=== PATIENT | female | born 1940 | race Two or more races ===

== ENCOUNTER 2024-01-05 08:43 | Emergency (ER) | payer OTHER ==
[~2024-01-05] VITALS: Ht 162.6 cm; Wt 73.5 kg
[~2024-01-05 08:43] MED LIST: CRESTOR20 MG; FOLIC ACID1 MG; GLYXAMBI 25 MG1 EACH; JANUVIA100 MG; LOSARTAN POTASS50 MG; OMEPRAZOLE MAGN20 MG; SINGULAIR10 MG; SYNTHROID125 MCG; ZANAFLEX2 MG PO
[2024-01-05 12:53] LABS: HEMATOCRIT 38.3 % (36.0-45.00); HEMOGLOBIN 12.1 g/dL (12.0-15.00); MEAN CORPUSCULAR HEMOGLOBIN 24.3 pg (27.00-32.0); MEAN CORPUSCULAR HGB CONC 31.5 g/dl (32.0-36.0); PLATELET COUNT 191 K/uL (150-450); RED BLOOD COUNT 4.97 M/uL (4.00-6.00); RED CELL DISTRIBUTION WIDTH 14.4 % (11.5-14.5)
[2024-01-05 12:57] LABS: CALCIUM 9.5 mg/dL (8.5-10.1); CREATININE SERUM 0.52 mg/dL (0.55-1.02); GFR 112.34; POTASSIUM 3.96 mEq/L (3.5-5.1)
[2024-01-05] MEDS ORDERED: ACETAMINOPHEN 500 MG GEL..CAP PO ONE ×2 (15:51→16:00)
[2024-01-05] MEDS ORDERED: CEFTRIAXONE SODIUM 1,000 MG VIAL IM ONE (16:45)
[2024-01-05] MEDS ORDERED: CEFTRIAXONE SODIUM 1,000 MG VIAL ONE (16:53)
[2024-01-05] MEDS ORDERED: LIDOCAINE HCL 1% 10ML VIAL ONE (16:54)
== END 2024-01-05 17:01 ==
LOC: ER 08:44
PROVIDERS: General Practice
DX: M79.605 Pain in left leg (principal); I10 Essential (primary) hypertension; E03.8 Other specified hypothyroidism; E11.9 Type 2 diabetes mellitus without complications; Z88.0 Allergy status to penicillin; Z91.013 Allergy to seafood

== ENCOUNTER 2024-01-22 18:05 | Emergency (ER) | payer OTHER ==
[~2024-01-22] VITALS: Ht 162.6 cm; Wt 73.5 kg
[2024-01-22] MEDS ORDERED: FAMOTIDINE/PF 20 MG/2 ML VIAL IV PUSH STA (20:59)
[2024-01-22] MEDS ORDERED: ONDANSETRON HCL 2 MG/ML VIAL IM STA (21:00)
[2024-01-22 21:44] LABS: HEMATOCRIT 36.8 % (36.0-45.00); HEMOGLOBIN 11.5 g/dL (12.0-15.00); MEAN CELL VOLUME 76.8 fL (80.00-100.00); MEAN CORPUSCULAR HEMOGLOBIN 23.9 pg (27.00-32.0); MEAN CORPUSCULAR HGB CONC 31.1 g/dl (32.0-36.0); PLATELET COUNT 208 K/uL (150-450); RED BLOOD COUNT 4.79 M/uL (4.00-6.00); RED CELL DISTRIBUTION WIDTH 14.5 % (11.5-14.5)
[2024-01-22 22:33] LABS: ALBUMIN 3.5 gm/dL (3.4-5.0); BILIRUBIN TOTAL 0.37 mg/dL (0.3-1.2); CREATININE SERUM 0.74 mg/dL (0.55-1.02); GFR 74.77; GLOBULINA 5.5 G/DL (2.4-3.5); POTASSIUM 4.39 mEq/L (3.5-5.1)
== END 2024-01-22 23:27 | disposition home or self-care (01) ==
LOC: ER 18:06
PROVIDERS: General Practice
DX: R11.0 Nausea (principal); I10 Essential (primary) hypertension; E03.8 Other specified hypothyroidism; E11.9 Type 2 diabetes mellitus without complications; Z88.6 Allergy status to analgesic agent; Z91.013 Allergy to seafood
CPT/HCPCS: 36415; 96365; 96372; 99282; J1885; J2405

== ENCOUNTER 2024-04-12 17:49 | Emergency (ER) | payer OTHER ==
[~2024-04-12] VITALS: Ht 162.6 cm; Wt 74.8 kg
[2024-04-12] MEDS ORDERED: HYDROCODONE/CHLORPHEN P-STIREX 5 ML ML PO STA (19:54)
[2024-04-12] MEDS ORDERED: CEFTRIAXONE SODIUM 1,000 MG VIAL IM STA (19:54)
[2024-04-12] MEDS ORDERED: DEXAMETHASONE SODIUM PHOSPHATE 4 MG/ML VIAL IM STA (19:55)
== END 2024-04-12 20:16 | disposition home or self-care (01) ==
LOC: ER 17:50
DX: J06.9 Acute upper respiratory infection, unspecified (principal); Z88.6 Allergy status to analgesic agent; Z91.013 Allergy to seafood

== ENCOUNTER 2024-09-10 14:31 | Emergency (ER) | payer OTHER ==
[~2024-09-10] VITALS: Ht 162.6 cm; Wt 74.8 kg
[2024-09-10 15:30] VITALS: BP 167/90; O2SAT 96
[2024-09-10] MEDS ORDERED: MECLIZINE HCL 25 MG TABLET PO ONE ×2 (16:09→16:15)
[2024-09-10] MEDS ORDERED: ONDANSETRON HCL 2 MG/ML VIAL ONE (16:09)
[2024-09-10] MEDS ORDERED: ONDANSETRON HCL 2 MG/ML VIAL IV ONE (16:15)
[2024-09-10 16:48] LABS: HEMOGLOBIN 13.7 g/dL (12.0-15.00); MEAN CELL VOLUME 80.8 fL (80.00-100.00); MEAN CORPUSCULAR HEMOGLOBIN 25.1 pg (27.00-32.0); MEAN CORPUSCULAR HGB CONC 31.1 g/dl (32.0-36.0); PLATELET COUNT 140 K/uL (150-450); RED BLOOD COUNT 5.45 M/uL (4.00-6.00); RED CELL DISTRIBUTION WIDTH 13.9 % (11.5-14.5)
[2024-09-10 17:28] LABS: ALBUMIN 3.9 gm/dL (3.4-5.0); BILIRUBIN TOTAL 0.5 mg/dL (0.3-1.2); CALCIUM 10.2 mg/dL (8.5-10.1); CREATININE SERUM 0.58 mg/dL (0.55-1.02); GFR 98.8; POTASSIUM 4.58 mEq/L (3.5-5.1); TOTAL PROTEIN 8.9 gm/dL (6.4-8.2)
[2024-09-10] MEDS ORDERED: ZOFRAN8 MG PO (18:03)
[2024-09-10] MEDS ORDERED: MEDI-MECLIZINE25 MG PO (18:03)
== END 2024-09-10 18:10 | disposition home or self-care (01) ==
LOC: ER 14:34
PROVIDERS: General Practice
DX: R42 Dizziness and giddiness (principal); I10 Essential (primary) hypertension; E11.9 Type 2 diabetes mellitus without complications; Z79.84 Long term (current) use of oral hypoglycemic drugs; Z88.6 Allergy status to analgesic agent; Z91.013 Allergy to seafood

== ENCOUNTER 2024-11-11 10:30 | Emergency (ER) | payer OTHER ==
[~2024-11-11] VITALS: Ht 162.6 cm; Wt 77.1 kg
[~2024-11-11 10:30] MED LIST changes: +MEDI-MECLIZINE25 MG PO; +ZOFRAN8 MG PO
[2024-11-11 15:17] LABS: BASO % 0.7 % (0.1-1.2); EOS # 0.14 (0.04-0.54); EOS % 1.6 % (0.7-7.0); HEMATOCRIT 42.9 % (34.1-44.9); LYMPH # 2.01 (1.18-3.74); LYMPH % 22.9 % (19.3-53.1); MEAN CORPUSCULAR HEMOGLOBIN 24.4 pg (25.6-32.2); MONO # 0.69 (0.24-0.82); MONO % 7.9 % (4.7-12.5); NEUT # 5.83 (1.56-6.13); NEUT % 66.3 % (34.0-71.1); PLATELET COUNT 174 K/uL (163-369); RED BLOOD COUNT 5.32 M/uL (3.93-5.22); RED CELL DISTRIBUTION WIDTH 12.7 % (11.6-14.4)
[2024-11-11 15:59] LABS: INFLUENZA A AG NEGATIVE (NEGATIVE)
[2024-11-11 17:05] LABS: POTASSIUM 4.08 mEq/L (3.5-5.1)
[2024-11-11 17:07] LABS: CALCIUM 9.4 mg/dL (8.5-10.1)
[2024-11-11 17:14] LABS: ALBUMIN 3.7 gm/dL (3.4-5.0); BILIRUBIN TOTAL 0.49 mg/dL (0.3-1.2); CREATININE SERUM 0.62 mg/dL (0.55-1.02); GFR 91.48; GLOBULINA 4.3 G/DL (2.4-3.5)
[2024-11-11] MEDS ORDERED: POVIDONE-IODINE 118 ML BOTT TOP ONE (17:35)
[2024-11-11] MEDS ORDERED: ZYRTEC10 MG PO (18:20)
[2024-11-11] MEDS ORDERED: FLONASE16 GM NASAL (18:20)
[2024-11-11] MEDS ORDERED: BENZONATATE200 M1 PO (18:20)
== END 2024-11-11 18:24 | disposition home or self-care (01) ==
LOC: ER 10:45
PROVIDERS: Preventive Medicine Public Health & General Preventive Medicine
DX: J06.9 Acute upper respiratory infection, unspecified (principal); J45.909 Unspecified asthma, uncomplicated; Z91.013 Allergy to seafood; Z88.6 Allergy status to analgesic agent; I10 Essential (primary) hypertension; E03.8 Other specified hypothyroidism; E78.49 Other hyperlipidemia; E11.9 Type 2 diabetes mellitus without complications; Z79.84 Long term (current) use of oral hypoglycemic drugs

== ENCOUNTER 2025-05-18 17:17 | Emergency (ER) | payer OTHER ==
[~2025-05-18] VITALS: Ht 162.6 cm; Wt 77.6 kg
[~2025-05-18 17:17] MED LIST changes: +BENZONATATE200 M1 PO; +FLONASE16 GM NASAL; +ZYRTEC10 MG PO
[2025-05-18] MEDS ORDERED: ORPHENADRINE CITRATE 30 MG/ML AMPUL IM ONE (19:00)
[2025-05-18] MEDS ORDERED: ACETAMINOPHEN 500 MG GEL..CAP PO ONE (19:00)
[2025-05-18 21:16] LABS: BASO % 0.6 % (0.1-1.2); EOS # 0.16 (0.04-0.54); EOS % 1.7 % (0.7-7.0); LYMPH # 1.95 (1.18-3.74); LYMPH % 21.0 % (19.3-53.1); MEAN PLATELET VOLUME 10.80 fl (9.4-12.4); MONO # 0.57 (0.24-0.82); MONO % 6.1 % (4.7-12.5); NEUT # 6.46 (1.56-6.13); NEUT % 69.6 % (34.0-71.1); RED CELL DISTRIBUTION WIDTH 13.9 % (11.6-14.4)
[2025-05-18 21:44] LABS: BUN CREA RATIO 30.0 (7.0-25.0); CREATININE SERUM 0.57 mg/dL (0.55-1.02); GFR 100.81; OSMOLALITY SERUM 285.0 MOSM/KG (275-295)
[2025-05-18 21:45] LABS: GLUCOSE FASTING 244.0 mg/dL (65-100)
[2025-05-18 22:05] LABS: URINE APPEARANCE Clear; URINE BILIRRUBIN Negative (NEGATIVE); URINE BLOOD Negative; URINE COLOR Yellow; URINE KETONE Negative (NEGATIVE); URINE LEUKOCYTE Negative; URINE NITRATE Negative; URINE PROTEIN Negative (NEGATIVE); URINE UROBILINOGEN 0.2 E.U./dl
[2025-05-18 22:09] LABS: URINE BACTERIA 52.6 uL (0.0-1933); URINE EPITHELIAL CELLS 1.6 uL (0.0-38.8); URINE WBC 102.5 uL (0.0-23.2)
[2025-05-18 22:21] LABS: URINE CAST 0.00 uL (0.0-1.40); URINE GLUCOSE >=1000 MG/DL (NEGATIVE); URINE RBC 1.4 uL (0.0-20.8)
[2025-05-18] MEDS ORDERED: NORFLEX100MG PO (22:43)
[2025-05-18] MEDS ORDERED: TYLENOL ARTHRI650 MG PO (22:43)
== END 2025-05-18 22:49 ==
LOC: ER 17:18
PROVIDERS: General Practice
DX: M54.59 Other low back pain (principal); I10 Essential (primary) hypertension; E03.8 Other specified hypothyroidism; E11.9 Type 2 diabetes mellitus without complications; Z88.6 Allergy status to analgesic agent; Z91.013 Allergy to seafood